=== PATIENT | female | born 1945 | race Two or more races ===

== ENCOUNTER 2020-05-07 07:32 | Emergency (ER) | payer OTHER ==
[~2020-05-07] VITALS: Ht 160 cm; Wt 57.6 kg
[2020-05-07] MEDS ORDERED: LEVOTHYROXINE25 MC1 (08:06)
[2020-05-07] MEDS ORDERED: ATORVASTATIN CA10 MG (08:06)
[2020-05-07] MEDS ORDERED: ENALAPRIL MALEA10 MG (08:07)
[2020-05-07] MEDS ORDERED: METFORMIN HCL500 M4 (08:07)
== END 2020-05-07 10:38 | disposition home or self-care (01) ==
LOC: ER 07:32
DX: R53.1 Weakness (principal); R25.8 Other abnormal involuntary movements; F41.1 Generalized anxiety disorder

== ENCOUNTER → 2022-06-17 | Outpatient (CLI) | payer OTHER ==
[~2022-06-17] MED LIST: ATORVASTATIN CA10 MG; ENALAPRIL MALEA10 MG; LEVOTHYROXINE25 MC1; METFORMIN HCL500 M4
== END | disposition home or self-care (01) ==
LOC: TOM 08:59
PROVIDERS: ATTEND Internal Medicine Gastroenterology
DX: K56.609 Unspecified intestinal obstruction, unspecified as to partial versus complete obstruction (principal)